=== PATIENT | female | born 1990 | race Caucasian/White ===

== ENCOUNTER 2017-12-21 00:07 | Inpatient (IN) | payer BC ==
[2017-12-21] MEDS ORDERED: Lidocaine 1% 50 ML MDV INJECT PRN (00:13)
[2017-12-21] MEDS ORDERED: Nalbuphine 10 MG/1 ML Vial IVPUSH PRN (00:13)
[2017-12-21] MEDS ORDERED: Sodium Chloride 0.9% 10 ML Syringe FLUSH PRN (00:13)
[2017-12-21] MEDS ORDERED: Methylergonovine 0.2 MG/1 ML Amp IM PRN (00:13)
[2017-12-21] MEDS ORDERED: Misoprostol 200 MCG Tab PO PRN ×3 (00:13→07:43)
[2017-12-21] MEDS ORDERED: Sodium Chloride 0.9% 2.5 ML Syringe FLUSH PRN (00:13)
[2017-12-21] MEDS ORDERED: Water For Irrigation,Sterile 1,000 ML Container IRR PRN (00:13)
[2017-12-21] MEDS ORDERED: Carboprost Tromethamine 250 MCG/1 ML Amp IM PRN (00:13)
[2017-12-21] MEDS ORDERED: Tranexamic Acid 1,000 MG in Sodium Chloride 0.9% 100 ML IV PRN (00:13)
[2017-12-21] MEDS ORDERED: Oxytocin/0.9 % Sodium Chloride 30 UNIT/500 ML BAG IV SCH ×2 (00:15→00:30)
[2017-12-21] MEDS ORDERED: Misoprostol 25 MCG (1/4 of 100 MCG) Tab VAG PRN (00:17)
[2017-12-21] MEDS ORDERED: Terbutaline 1 MG/ML SDV SUBCUT PRN (00:17)
[2017-12-21] MEDS ORDERED: Ampicillin 2 GM in Sodium Chloride 0.9% 100 ML IV ONE (04:04)
[2017-12-21] MEDS: Lactated Ringers 1,000 ML IV SCH ×2 (04:40→07:15)
--- NOTE | 2017-12-21 06:44 | PCM.LDHP ---
L&D History of Present Illness - General Date of Service: 12/21/17 Admit Problem/Dx: Patient Status Order with Admit Dx/Problem 12/21/17 00:13 Patient Status [ADT] Routine Admission Diagnosis/Problem Admission Diagnosis/Problem 12/21/17 06:40 27yo EDC 12/26/2017 39 2/7wks, O+, R-equivocal, GBS pos. IOL term Source of Information: Patient History Limitations: Reports: No Limitations - History of Present Illness Improves with: Reports: None Worsens with: Reports: None Associated Symptoms: Reports: N - Related Data Allergies/Adverse Reactions: Allergies Allergy/AdvReac Type Severity Reaction Status Date / Time No Known Allergies Allergy Verified 12/06/17 16:53 Home Medications: Home Meds Vit W-Ca,Fe,FA(<1 mg) [ Vitamins] 1 tab PO DAILY 10/17/17 [ History] Past Medical History - Past Health History Medical/Surgical History: Denies Medical/Surgical History [employer]SEM[employer]ER History: Reports: Social & Family History - Family History Family Medical History: Noncontributory - Tobacco Use Smoking Status *Q: Never Smoker Second Hand Smoke Exposure: No - Caffeine Use Caffeine Use: Reports: None - Recreational Drug Use Recreational Drug Use: No H&P Review of Systems - Review of Systems: Review Of Systems: See Below General: Reports: No Symptoms HEENT: Reports: No Symptoms Pulmonary: Reports: No Symptoms Cardiovascular: Reports: No Symptoms Gastrointestinal: Reports: No Symptoms Genitourinary: Reports: No Symptoms Musculoskeletal: Reports: No Symptoms Skin: Reports: No Symptoms Psychiatric: Reports: No Symptoms Neurological: Reports: No Symptoms Hematologic/Lymphatic: Reports: No Symptoms Immunologic: Reports: No Symptoms L&D Exam - Exam Exam: See Below - Vital Signs Weight: 85.729 kg - OB Specific Fundal Height In cm: 39 Contraction Intensity: Strong Movement: Active Heart Tones: Present Heart Tones per Min: 130 Heart Rate (FHR) Variability: Moderate (6-25 bmp) Presentation: Vertex - Bunn Score Bunn Score Cervix Position: Midposition Bunn Score Consistency: Soft Bunn Score Effacement: >80% Bunn Score Dilation: > 5 cm Bunn Score 's Station: -2 Bunn Score Total: 10 - Exam General: Alert, Oriented, Cooperative HEENT: Hearing Intact Lungs: Clear to Auscultation, Normal Respiratory Effort Cardiovascular: Regular Rate, Regular Rhythm, Normal S1, Normal S2 GI/Abdominal Exam: Soft, Non-Tender Rectal Exam: Deferred Genitourinary: Normal external exam, Normal bimanual exam, Cervical dilitation Back Exam: Normal Inspection, Full Range of Motion Extremities: Normal Inspection, Normal Range of Motion, Non-Tender, No Pedal Edema, Normal Capillary Refill Skin: Warm, Dry, Intact Neurological: Cranial Nerves Intact, Reflexes Equal Bilateral, Strength Equal Bilateral, Normal Speech, Normal Tone, Sensation Intact Psychiatric: Alert, Normal Affect, Normal Mood - Patient Data Lab Results Last 24 hrs: Laboratory Results - last 24 hr 12/21/17 12/21/17 Range/Units 00:10 00:35 WBC 8.23 (4.0-11.0) K/uL RBC 4.08 L (4.30-5.90) M/uL Hgb 11.2 L (12.0-16.0) g/dL Hct 33.1 L (36.0-46.0) % MCV 81.1 (80.0-98.0) fL MCH 27.5 (27.0-32.0) pg MCHC 33.8 (31.0-37.0) g/dL RDW Std Deviation 41.4 (28.0-62.0) fl RDW Coeff of Erik 14 (11.0-15.0) % Plt Count 154 (150-400) K/uL MPV 10.70 (7.40-12.00) fL Nucleated RBC % 0.0 /100WBC Nucleated RBCs # 0 K/uL Blood Type O POSITIVE Antibody Screen NEGATIVE Result Diagrams: 12/21/17 00:10 - Problem List (1) Supervision of normal IUP (intrauterine ) in multigravida SNOMED Code(s): 170937481, 260779163, 266913990 ICD Code: Z34.80 - ENCOUNTER FOR SUPRVSN OF NORMAL , UNSP TRIMESTER Status: Acute Current Visit: Yes Qualifiers: Trimester: third trimester Qualified Code(s): Z34.83 - Encounter for supervision of other normal , third trimester Problem List Initiated/Reviewed/Updated: Yes Orders Last 24hrs: Active Orders 24 hr Category Date Time Status Patient Status [ADT] Routine ADT 12/21/17 00:13 Active Bedrest Bathroom Privileges [RC] ASDIRECTED Care 12/21/17 00:17 Active Communication Order [RC] ASDIRECTED Care 12/21/17 00:17 Active Communication Order [RC] ASDIRECTED Care 12/21/17 00:17 Active Communication Order [RC] ASDIRECTED Care 12/21/17 00:17 Active Heart Tones [RC] CONTINUOUS Care 12/21/17 00:13 Active Non Stress Test [RC] PER UNIT ROUTINE Care 12/21/17 00:13 Active May Shower [RC] ASDIRECTED Care 12/21/17 00:13 Active Notify Provider [RC] PRN Care 12/21/17 00:13 Active Notify Provider [RC] PRN Care 12/21/17 00:17 Active Notify Provider [RC] PRN Care 12/21/17 00:17 Active Notify Provider [RC] STAT Care 12/21/17 00:17 Active Oxygen Therapy [RC] ASDIRECTED Care 12/21/17 00:17 Active Up ad Danica [RC] ASDIRECTED Care 12/21/17 00:13 Active Vaginal Exam [RC] PRN Care 12/21/17 00:13 Active Vaginal Exam [RC] PRN Care 12/21/17 00:17 Active Vital Signs [RC] PER UNIT ROUTINE Care 12/21/17 00:13 Active Vital Signs [RC] PER UNIT ROUTINE Care 12/21/17 00:17 Active Regular Diet [DIET] Diet 12/21/17 Breakfast Active Ampicillin 1 gm Med 12/21/17 09:00 Active Sodium Chloride 0.9% [Normal Saline] 50 ml IV Q4H Carboprost Tromethamine [Hemabate DS] Med 12/21/17 00:13 Active 250 mcg IM ASDIRECTED PRN Lactated Ringers [Ringers, Lactated] 1,000 ml Med 12/21/17 00:15 Active IV ASDIRECTED Lidocaine 1% [Xylocaine 1%] Med 12/21/17 00:13 Active 50 ml INJECT ONETIME PRN Methylergonovine [Methergine] Med 12/21/17 00:13 Active 0.2 mg IM ASDIRECTED PRN Nalbuphine [Nubain] Med 12/21/17 00:13 Active 10 mg IVPUSH Q1H PRN Oxytocin/0.9 % Sodium Chloride [Oxytocin 30 Unit/500 ML Med 12/21/17 00:15 Active -NS] 30 unit in 500 ml IV TITRATE Oxytocin/0.9 % Sodium Chloride [Oxytocin 30 Unit/500 ML Med 12/21/17 00:30 Active -NS] 30 unit in 500 ml IV TITRATE Sodium Chloride 0.9% [Saline Flush] Med 12/21/17 00:13 Active 10 ml FLUSH ASDIRECTED PRN Sodium Chloride 0.9% [Saline Flush] Med 12/21/17 00:13 Active 2.5 ml FLUSH ASDIRECTED PRN Terbutaline [Brethine] Med 12/21/17 00:17 Active 0.25 mg SUBCUT ASDIRECTED PRN Tranexamic Acid [Cyklokapron] 1,000 mg Med 12/21/17 00:13 Active Sodium Chloride 0.9% [Normal Saline] 100 ml IV ONETIME Water For Irrigation,Sterile [Sterile Water for Med 12/21/17 00:13 Active Irrigation] 1,000 ml IRR ASDIRECTED PRN miSOPROStol [Cytotec] Med 12/21/17 00:22 Active 25 mcg PO Q4H PRN miSOPROStol [Cytotec] Med 12/21/17 00:17 Active 25 mcg VAG Q4H PRN Scalp Electrode [WOMSER] Per Unit Routine Oth 12/21/17 00:13 Ordered Medication Administration Instruction [OM.PC] Q3H Oth 12/21/17 00:30 Ordered Peripheral IV Insertion Adult [OM.PC] Routine Oth 12/21/17 00:13 Ordered Resuscitation Status Routine Resus Stat 12/21/17 00:13 Ordered Medication Orders Carboprost Tromethamine (Hemabate Ds) 250 mcg IM ASDIRECTED PRN PRN Reason: Post Hemorrhage Lactated Ringer's (Ringers, Lactated) 1,000 mls @ 150 mls/hr IV ASDIRECTED CHAN Last Admin: 12/21/17 04:40 Dose: 150 mls/hr Oxytocin/Sodium Chloride (Oxytocin 30 Unit/500 Ml-Ns) 30 unit in 500 mls @ 999 mls/hr IV TITRATE CHAN Tranexamic Acid 1,000 mg/ (Sodium Chloride) 110 mls @ 660 mls/hr IV ONETIME PRN PRN Reason: Bleeding Oxytocin/Sodium Chloride (Oxytocin 30 Unit/500 Ml-Ns) 30 unit in 500 mls @ 2 mls/hr IV TITRATE CHAN; Protocol Ampicillin Sodium 1 gm/ Sodium (Chloride) 50 mls @ 100 mls/hr IV Q4H CHAN Lidocaine HCl (Xylocaine 1%) 50 ml INJECT ONETIME PRN PRN Reason: Laceration repair Methylergonovine Maleate (Methergine) 0.2 mg IM ASDIRECTED PRN PRN Reason: Post Hemorrhage Misoprostol (Cytotec) 25 mcg VAG Q4H PRN PRN Reason: Cervical Ripening Last Admin: 12/21/17 02:39 Dose: 25 mcg Misoprostol (Cytotec) 25 mcg PO Q4H PRN PRN Reason: Post Hemorrhage Last Admin: 12/21/17 02:39 Dose: 25 mcg Nalbuphine HCl (Nubain) 10 mg IVPUSH Q1H PRN PRN Reason: Pain (severe 7-10) Sodium Chloride (Saline Flush) 10 ml FLUSH ASDIRECTED PRN PRN Reason: Keep Vein Open Sodium Chloride (Saline Flush) 2.5 ml FLUSH ASDIRECTED PRN PRN Reason: Keep Vein Open Sterile Water (Sterile Water For Irrigation) 1,000 ml IRR ASDIRECTED PRN PRN Reason: delivery Terbutaline Sulfate (Brethine) 0.25 mg SUBCUT ASDIRECTED PRN PRN Reason: Tacysystole Assessment/Plan Comment:: IOL A: 27yo EDC 12/26/2017 39 2/7wks, O+, R-equivocal, GBS pos. IOL term P: Admit, cytotec to pitocin, Amp for GBS pos. Epidural prn, anticipate . Dr Temple updated.
[2017-12-21] MEDS ORDERED: Ropivacaine 0.2% 2 MG/ML 20 ML SDV ONE (07:07)
--- NOTE | 2017-12-21 07:23 | PCM.PREANE ---
Preanesthetic Assessment - Procedure Proposed Procedure: labor epidural - Anesthesia/Transfusion/Family Hx Anesthesia History: Prior Anesthesia Without Reaction Family History of Anesthesia Reaction: No - Review of Systems Other: Reports: None - Physical Assessment Height: 5 ft 6 in Weight: 85.729 kg ASA Class: 2 Mental Status: Alert & Oriented x3 Airway Class: Mallampati = 1 Dentition: Reports: Normal Dentition Thyro-Mental Finger Breadths: 3 Mouth Opening Finger Breadths: 3 ROM/Head Extension: Full - Lab Values: Laboratory Last Values WBC 8.23 K/uL (4.0-11.0) 12/21/17 00:10 RBC 4.08 M/uL (4.30-5.90) L 12/21/17 00:10 Hgb 11.2 g/dL (12.0-16.0) L 12/21/17 00:10 Hct 33.1 % (36.0-46.0) L 12/21/17 00:10 MCV 81.1 fL (80.0-98.0) 12/21/17 00:10 MCH 27.5 pg (27.0-32.0) 12/21/17 00:10 MCHC 33.8 g/dL (31.0-37.0) 12/21/17 00:10 RDW Std Deviation 41.4 fl (28.0-62.0) 12/21/17 00:10 RDW Coeff of Erik 14 % (11.0-15.0) 12/21/17 00:10 Plt Count 154 K/uL (150-400) 12/21/17 00:10 MPV 10.70 fL (7.40-12.00) 12/21/17 00:10 Nucleated RBC % 0.0 /100WBC 12/21/17 00:10 Nucleated RBCs # 0 K/uL 12/21/17 00:10 Blood Type O POSITIVE 12/21/17 00:35 Antibody Screen NEGATIVE 12/21/17 00:35 - Allergies Allergies/Adverse Reactions: Allergies Allergy/AdvReac Type Severity Reaction Status Date / Time No Known Allergies Allergy Verified 12/06/17 16:53 - Blood Blood Available: Yes Product(s) Available: PRBC - Acknowledgements Anesthesia Type Planned: Epidural Pt an Appropriate Candidate for the Planned Anesthesia: Yes Alternatives and Risks of Anesthesia Discussed w Pt/Guardian: Yes Pt/Guardian Understands and Agrees with Anesthesia Plan: Yes PreAnesthesia Questionnaire - Past Health History Medical/Surgical History: Denies 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: - Past Surgical History HEENT Surgical History: Reports: Oral Surgery - SUBSTANCE USE Smoking Status *Q: Never Smoker Second Hand Smoke Exposure: No Recreational Drug Use History: No - HOME MEDS Home Medications: Home Meds Vit W-Ca,Fe,FA(<1 mg) [ Vitamins] 1 tab PO DAILY 10/17/17 [ History] - CURRENT (IN HOUSE) MEDS Current Meds: Current Medications Carboprost Tromethamine (Hemabate Ds) 250 mcg IM ASDIRECTED PRN PRN Reason: Post Hemorrhage Lactated Ringer's (Ringers, Lactated) 1,000 mls @ 150 mls/hr IV ASDIRECTED CHAN Last Admin: 12/21/17 07:15 Dose: 150 mls/hr Oxytocin/Sodium Chloride (Oxytocin 30 Unit/500 Ml-Ns) 30 unit in 500 mls @ 999 mls/hr IV TITRATE CHAN Tranexamic Acid 1,000 mg/ (Sodium Chloride) 110 mls @ 660 mls/hr IV ONETIME PRN PRN Reason: Bleeding Oxytocin/Sodium Chloride (Oxytocin 30 Unit/500 Ml-Ns) 30 unit in 500 mls @ 2 mls/hr IV TITRATE CHAN; Protocol Ampicillin Sodium 1 gm/ Sodium (Chloride) 50 mls @ 100 mls/hr IV Q4H CHAN Lidocaine HCl (Xylocaine 1%) 50 ml INJECT ONETIME PRN PRN Reason: Laceration repair Methylergonovine Maleate (Methergine) 0.2 mg IM ASDIRECTED PRN PRN Reason: Post Hemorrhage Misoprostol (Cytotec) 25 mcg VAG Q4H PRN PRN Reason: Cervical Ripening Last Admin: 12/21/17 02:39 Dose: 25 mcg Misoprostol (Cytotec) 25 mcg PO Q4H PRN PRN Reason: Post Hemorrhage Last Admin: 12/21/17 02:39 Dose: 25 mcg Nalbuphine HCl (Nubain) 10 mg IVPUSH Q1H PRN PRN Reason: Pain (severe 7-10) Last Admin: 12/21/17 06:35 Dose: 10 mg Sodium Chloride (Saline Flush) 10 ml FLUSH ASDIRECTED PRN PRN Reason: Keep Vein Open Sodium Chloride (Saline Flush) 2.5 ml FLUSH ASDIRECTED PRN PRN Reason: Keep Vein Open Sterile Water (Sterile Water For Irrigation) 1,000 ml IRR ASDIRECTED PRN PRN Reason: delivery Terbutaline Sulfate (Brethine) 0.25 mg SUBCUT ASDIRECTED PRN PRN Reason: Tacysystole Discontinued Medications Ampicillin Sodium 2 gm/ Sodium (Chloride) 100 mls @ 200 mls/hr IV ONETIME ONE Stop: 12/21/17 04:33 Last Admin: 12/21/17 04:45 Dose: 200 mls/hr Fentanyl/Bupivacaine HCl (Ibwgelyb-Jyrdg-Jp 2 Mcg/Ml-0.125%) Confirm Administered Dose 100 mls @ as directed EP .STK-MED ONE Stop: 12/21/17 07:08 Misoprostol (Cytotec) 200 mcg PO ONETIME PRN PRN Reason: Post Hemorrhage Ropivacaine (Naropin 0.2%) Confirm Administered Dose 20 ml .ROUTE .STK-MED ONE Stop: 12/21/17 07:08
[2017-12-21] MEDS ORDERED: ePHEDrine 50 MG/ML SDV ONE (07:37)
[2017-12-21] MEDS ORDERED: Oxytocin/0.9 % Sodium Chloride 30 UNIT/500 ML BAG ONE (07:52)
[2017-12-21] MEDS ORDERED: Oxytocin 10 Units/1 ML SDV ONE (08:58)
[2017-12-21] MEDS ORDERED: Ampicillin 1 GM in Sodium Chloride 0.9% 50 ML IV SCH (09:00)
[2017-12-21] MEDS ORDERED: Acetaminophen 500 MG Tab PO PRN (09:19)
[2017-12-21] MEDS ORDERED: Lanolin 100% Cream 7 GM Tube TOP PRN (09:19)
[2017-12-21] MEDS ORDERED: oxyCODONE 5 MG Tab PO PRN (09:19)
[2017-12-21] MEDS ORDERED: Ibuprofen 400 MG Tab PO PRN (09:19)
[2017-12-21] MEDS ORDERED: Benzocaine/Menthol 20%-0.5% Spray 78 GM Cannister TOP PRN (09:19)
[2017-12-21] MEDS ORDERED: Witch Hazel Medicated Pads 40/Jar TOP PRN (09:19)
[2017-12-21] MEDS ORDERED: Docusate Sodium 100 MG Cap PO PRN (09:19)
[2017-12-21] MEDS ORDERED: Bisacodyl 10 MG Supp RECTAL PRN (09:19)
[2017-12-21] MEDS ORDERED: Measles, Mumps & Rubella Vaccine 0.5 ML SDV SUBCUT ONE (09:30)
[2017-12-21] MEDS ORDERED: Promethazine 25 MG/ML SDV IM PRN (09:30)
[2017-12-21] MEDS ORDERED: Oxytocin 10 Units/1 ML SDV IM ONE (10:26)
[2017-12-21] MEDS ORDERED: Promethazine 25 MG/ML SDV IM ONE (10:26)
--- NOTE | 2017-12-21 16:30 | PCM.DEL ---
L & D Note - General Info Date of Service: 12/21/17 Mother's Due Date: 12/26/17 - Delivery Note Cervical Ripening Method: Misoprostil Delivery Outcome: Livebirth Delivery Method: Spontaneous Vaginal Delivery-Single Delivery Mode: Spontaneous Presentation: Vertex Nuchal Cord: None Anesthesia Type: Epidural Amniotic Fluid Description: Clear Episiotomy Type: None Laceration: 2nd Degree Suture type: Vicryl Suture size: 3-0 Cord: 3 Vessels Estimated Blood Loss: 150 Resuscitation Needed: No Score 1 min: 9 Score 5 min: 10 Second Stage Interventions: Reports: Pushing, Pulls Own Legs Back - General Info Date of Service: 12/21/17 Admission Dx/Problem (Free Text): Patient Status Order with Admit Dx/Problem 12/21/17 00:13 Patient Status [ADT] Routine Admission Diagnosis/Problem Admission Diagnosis/Problem 12/21/17 06:40 27yo EDC 12/26/2017 39 2/7wks, O+, R-equivocal, GBS pos. IOL term Functional Status: Reports: Pain Controlled - Review of Systems General: Reports: No Symptoms HEENT: Reports: No Symptoms Pulmonary: Reports: No Symptoms Cardiovascular: Reports: No Symptoms Gastrointestinal: Reports: No Symptoms Genitourinary: Reports: No Symptoms Musculoskeletal: Reports: No Symptoms Skin: Reports: No Symptoms Neurological: Reports: No Symptoms Psychiatric: Reports: No Symptoms - Patient Data Weight - Most Recent: 85.729 kg Lab Results Last 24 Hours: Laboratory Results - last 24 hr 12/21/17 12/21/17 Range/Units 00:10 00:35 WBC 8.23 (4.0-11.0) K/uL RBC 4.08 L (4.30-5.90) M/uL Hgb 11.2 L (12.0-16.0) g/dL Hct 33.1 L (36.0-46.0) % MCV 81.1 (80.0-98.0) fL MCH 27.5 (27.0-32.0) pg MCHC 33.8 (31.0-37.0) g/dL RDW Std Deviation 41.4 (28.0-62.0) fl RDW Coeff of Erik 14 (11.0-15.0) % Plt Count 154 (150-400) K/uL MPV 10.70 (7.40-12.00) fL Nucleated RBC % 0.0 /100WBC Nucleated RBCs # 0 K/uL Blood Type O POSITIVE Antibody Screen NEGATIVE Med Orders - Current: Current Medications Acetaminophen (Tylenol Extra Strength) 500 mg PO Q4H PRN PRN Reason: Pain Acetaminophen (Tylenol Extra Strength) 1,000 mg PO Q4H PRN PRN Reason: Pain Benzocaine/Menthol (Dermoplast Pain Relief 20%-0.5% [place]) 78 gm TOP ASDIRECTED PRN PRN Reason: Perineal Comfort Measure Bisacodyl (Dulcolax) 10 mg RECTAL ONETIME PRN PRN Reason: Constipation Docusate Sodium (Colace) 100 mg PO BID PRN PRN Reason: Constipation Emollient Ointment (Lansinoh Hpa) 0 gm TOP ASDIRECTED PRN PRN Reason: Sore Nipples Ibuprofen (Motrin) 400 mg PO Q4H PRN PRN Reason: Pain Ibuprofen (Motrin) 800 mg PO Q6H PRN PRN Reason: Pain Oxycodone HCl (Oxycodone) 5 mg PO Q2H PRN PRN Reason: Pain Promethazine HCl (Phenergan) 25 mg IM Q4H PRN PRN Reason: Nausea Last Admin: 12/21/17 11:28 Dose: 25 mg Witch Bonnie (Tucks) 1 pad TOP ASDIRECTED PRN PRN Reason: comfort care Discontinued Medications Carboprost Tromethamine (Hemabate Ds) 250 mcg IM ASDIRECTED PRN PRN Reason: Post Hemorrhage Ephedrine Sulfate (Ephedrine Sulfate) Confirm Administered Dose 50 mg .ROUTE .STK-MED ONE Stop: 12/21/17 07:38 Lactated Ringer's (Ringers, Lactated) 1,000 mls @ 150 mls/hr IV ASDIRECTED CHAN Last Admin: 12/21/17 07:15 Dose: 150 mls/hr Oxytocin/Sodium Chloride (Oxytocin 30 Unit/500 Ml-Ns) 30 unit in 500 mls @ 999 mls/hr IV TITRATE CHAN Tranexamic Acid 1,000 mg/ (Sodium Chloride) 110 mls @ 660 mls/hr IV ONETIME PRN PRN Reason: Bleeding Oxytocin/Sodium Chloride (Oxytocin 30 Unit/500 Ml-Ns) 30 unit in 500 mls @ 2 mls/hr IV TITRATE CHAN; Protocol Ampicillin Sodium 2 gm/ Sodium (Chloride) 100 mls @ 200 mls/hr IV ONETIME ONE Stop: 12/21/17 04:33 Last Admin: 12/21/17 04:45 Dose: 200 mls/hr Ampicillin Sodium 1 gm/ Sodium (Chloride) 50 mls @ 100 mls/hr IV Q4H CHAN Fentanyl/Bupivacaine HCl (Mjxyziau-Xpujg-My 2 Mcg/Ml-0.125%) Confirm Administered Dose 100 mls @ as directed EP .STK-MED ONE Stop: 12/21/17 07:08 Oxytocin/Sodium Chloride (Oxytocin 30 Unit/500 Ml-Ns) Confirm Administered Dose 30 unit in 500 mls @ as directed .ROUTE .STK-MED ONE Stop: 12/21/17 07:53 Last Admin: 12/21/17 12:12 Dose: Not Given Influenza Virus Vaccine (Pharmacy To Dose - Influenza Vaccine) 1 each IM ONETIME ONE Stop: 12/21/17 11:15 Lidocaine HCl (Xylocaine 1%) 50 ml INJECT ONETIME PRN PRN Reason: Laceration repair Measles/Mumps/Rubella Vaccine Live (M-M-R Ii Vaccine) 0.5 ml SUBCUT .ONCE ONE Stop: 12/21/17 09:31 Methylergonovine Maleate (Methergine) 0.2 mg IM ASDIRECTED PRN PRN Reason: Post Hemorrhage Misoprostol (Cytotec) 200 mcg PO ONETIME PRN PRN Reason: Post Hemorrhage Misoprostol (Cytotec) 25 mcg VAG Q4H PRN PRN Reason: Cervical Ripening Last Admin: 12/21/17 02:39 Dose: 25 mcg Misoprostol (Cytotec) 25 mcg PO Q4H PRN PRN Reason: Post Hemorrhage Last Admin: 12/21/17 02:39 Dose: 25 mcg Misoprostol (Cytotec) 200 mcg PO ONETIME PRN PRN Reason: post hemorrhage Nalbuphine HCl (Nubain) 10 mg IVPUSH Q1H PRN PRN Reason: Pain (severe 7-10) Last Admin: 12/21/17 06:35 Dose: 10 mg Oxytocin (Pitocin) Confirm Administered Dose 10 unit .ROUTE .STK-MED ONE Stop: 12/21/17 08:59 Last Admin: 12/21/17 10:05 Dose: 10 unit Oxytocin (Pitocin) 10 unit IM ONETIME ONE Stop: 12/21/17 10:27 Promethazine HCl (Phenergan) 25 mg IM ONETIME ONE Stop: 12/21/17 10:27 Ropivacaine (Naropin 0.2%) Confirm Administered Dose 20 ml .ROUTE .STK-MED ONE Stop: 12/21/17 07:08 Sodium Chloride (Saline Flush) 10 ml FLUSH ASDIRECTED PRN PRN Reason: Keep Vein Open Sodium Chloride (Saline Flush) 2.5 ml FLUSH ASDIRECTED PRN PRN Reason: Keep Vein Open Sterile Water (Sterile Water For Irrigation) 1,000 ml IRR ASDIRECTED PRN PRN Reason: delivery Terbutaline Sulfate (Brethine) 0.25 mg SUBCUT ASDIRECTED PRN PRN Reason: Tacysystole - Exam General: Alert, Oriented, Cooperative, No Acute Distress Lungs: Normal Respiratory Effort GI/Abdominal Exam: Soft, Non-Tender (Female) Exam: Normal External Exam, Normal Bimanual Exam, Vaginal Bleeding Back Exam: Normal Inspection, Full Range of Motion Extremities: Normal Inspection, Normal Range of Motion, Non-Tender, No Pedal Edema, Normal Capillary Refill Skin: Warm, Dry, Intact Wound/Incisions: Healing Well Neurological: No New Focal Deficit, Normal Speech, Normal Tone, Strength Equal Bilateral Psy/Mental Status: Alert, Normal Affect, Normal Mood - Problem List & Annotations (1) Supervision of normal IUP (intrauterine ) in multigravida SNOMED Code(s): 708808731, 656140095, 506226408 Code(s): Z34.80 - ENCOUNTER FOR SUPRVSN OF NORMAL , UNSP TRIMESTER Status: Acute Current Visit: Yes Qualifiers: Trimester: third trimester Qualified Code(s): Z34.83 - Encounter for supervision of other normal , third trimester (2) (normal spontaneous vaginal delivery) SNOMED Code(s): 60768888 Code(s): O80 - ENCOUNTER FOR FULL-TERM UNCOMPLICATED DELIVERY Status: Acute Priority: High Current Visit: Yes - Problem List Review Problem List Initiated/Reviewed/Updated: Yes - My Orders Last 24 Hours: My Active Orders 12/21/17 00:13 Heart Tones [RC] CONTINUOUS Non Stress Test [RC] PER UNIT ROUTINE May Shower [RC] ASDIRECTED Notify Provider [RC] PRN Up ad Danica [RC] ASDIRECTED Vaginal Exam [RC] PRN Vital Signs [RC] PER UNIT ROUTINE 12/21/17 00:17 Bedrest Bathroom Privileges [RC] ASDIRECTED Communication Order [RC] ASDIRECTED Communication Order [RC] ASDIRECTED Communication Order [RC] ASDIRECTED Notify Provider [RC] PRN Notify Provider [RC] PRN Notify Provider [RC] STAT Oxygen Therapy [RC] ASDIRECTED Vaginal Exam [RC] PRN Vital Signs [RC] PER UNIT ROUTINE 12/21/17 09:19 Acetaminophen [Tylenol Extra Strength] 1,000 mg PO Q4H PRN Acetaminophen [Tylenol Extra Strength] 500 mg PO Q4H PRN Benzocaine/Menthol [Dermoplast Pain Relief 20%-0.5% [place]] 78 gm TOP ASDIRECTED PRN Bisacodyl [Dulcolax] 10 mg RECTAL ONETIME PRN Docusate Sodium [Colace] 100 mg PO BID PRN Ibuprofen [Motrin] 400 mg PO Q4H PRN Ibuprofen [Motrin] 800 mg PO Q6H PRN Lanolin [Lansinoh HPA] See Dose Instructions TOP ASDIRECTED PRN Witch Bonnie [Tucks] 1 pad TOP ASDIRECTED PRN oxyCODONE 5 mg PO Q2H PRN 12/21/17 09:20 May Shower [RC] ASDIRECTED Up ad Danica [RC] ASDIRECTED Vital Signs [RC] PER UNIT ROUTINE Assess Lochia [WOMSER] Per Unit Routine Assess Uterine Involution [WOMSER] Per Unit Routine Peripheral IV Discontinue [OM.PC] Routine 12/21/17 09:25 Patient Status [ADT] Routine 12/21/17 09:30 Promethazine [Phenergan] 25 mg IM Q4H PRN 12/21/17 09:31 Vaccines to be Administered [RC] PER UNIT ROUTINE 12/21/17 Breakfast Regular Diet [DIET] - Plan Plan:: IOL A: 27yo EDC 12/26/2017 39 2/7wks, O+, R-equivocal, GBS pos. IOL term P: Admit, cytotec to pitocin, Amp for GBS pos. Epidural prn, anticipate . Dr Temple updated. Delivery A: of viable male, APGARS 9/10, Wt: 8#2oz, 2nd degree lac with repair, EBL 150cc, Mother and baby bonding well in recovery P: Routine pp plan of care
[2017-12-21] MEDS: Ibuprofen 800 MG Tab PO PRN ×2 (16:52→22:57)
[2017-12-21] MEDS: Acetaminophen 500 MG Tab PO PRN (16:53)
[2017-12-22] MEDS: Ibuprofen 800 MG Tab PO PRN ×3 (05:43→22:07)
--- NOTE | 2017-12-22 08:00 | PCM.DCSUM1 ---
Discharge Summary - Hospital Course Free Text/Narrative:: Discharge home with infant. Follow up in 6 weeks or sooner if needed for post . Diagnosis: Stroke: No - Discharge Data Discharge Date: 12/22/17 Discharge Disposition: Home, Self-Care 01 Condition: Good - Discharge Diagnosis/Problem(s) (1) Supervision of normal IUP (intrauterine ) in multigravida SNOMED Code(s): 200228491, 287239716, 700311013 ICD Code: Z34.80 - ENCOUNTER FOR SUPRVSN OF NORMAL , UNSP TRIMESTER Status: Acute Current Visit: Yes Qualifiers: Trimester: third trimester Qualified Code(s): Z34.83 - Encounter for supervision of other normal , third trimester (2) (normal spontaneous vaginal delivery) SNOMED Code(s): 70759103 ICD Code: O80 - ENCOUNTER FOR FULL-TERM UNCOMPLICATED DELIVERY Status: Acute Priority: High Current Visit: Yes - Patient Instructions Diet: Usual Diet as Tolerated Activity: As Tolerated, No Strenuous Activities, Rest and Relax Today Driving: May Drive Today Showering/Bathing: May Shower Notify Provider of: Fever, Increased Pain, Swelling and Redness, Nausea and/or Vomiting Other/Special Instructions: Discharge home with . Follow up in 6 weeks or sooner if needed for post . - Discharge Plan *PRESCRIPTION DRUG MONITORING PROGRAM REVIEWED*: Not Applicable *COPY OF PRESCRIPTION DRUG MONITORING REPORT IN PATIENT NICOLÁS: Not Applicable Home Medications: Home Meds Vit W-Ca,Fe,FA(<1 mg) [ Vitamins] 1 tab PO DAILY 10/17/17 [ History] Referrals: [facility] [Outside] Andree Walker CNM [Mid-] - 02/01/18 10:45 am - General Info Date of Service: 12/22/17 Admission Dx/Problem (Free Text: Patient Status Order with Admit Dx/Problem 12/21/17 00:13 Patient Status [ADT] Routine Admission Diagnosis/Problem Admission Diagnosis/Problem 12/21/17 06:40 27yo EDC 12/26/2017 39 2/7wks, O+, R-equivocal, GBS pos. IOL term Functional Status: Reports: Pain Controlled, Tolerating Diet, Ambulating, Urinating - Review of Systems General: Reports: No Symptoms HEENT: Reports: No Symptoms Pulmonary: Reports: No Symptoms Cardiovascular: Reports: No Symptoms Gastrointestinal: Reports: No Symptoms Genitourinary: Reports: No Symptoms Musculoskeletal: Reports: No Symptoms Skin: Reports: No Symptoms Neurological: Reports: No Symptoms Psychiatric: Reports: No Symptoms - Patient Data Vitals - Most Recent: Last Vital Signs Temp 36.4 C 12/22/17 05:30 Pulse 77 12/22/17 05:30 Resp 16 12/22/17 05:30 BP 114/56 L 12/22/17 05:30 Pulse Ox 97 12/21/17 19:39 Weight - Most Recent: 85.729 kg Med Orders - Current: Current Medications Acetaminophen (Tylenol Extra Strength) 500 mg PO Q4H PRN PRN Reason: Pain Acetaminophen (Tylenol Extra Strength) 1,000 mg PO Q4H PRN PRN Reason: Pain Last Admin: 12/21/17 16:53 Dose: 1,000 mg Benzocaine/Menthol (Dermoplast Pain Relief 20%-0.5% Ruffin) 78 gm TOP ASDIRECTED PRN PRN Reason: Perineal Comfort Measure Last Admin: 12/21/17 16:51 Dose: 1 spray Bisacodyl (Dulcolax) 10 mg RECTAL ONETIME PRN PRN Reason: Constipation Docusate Sodium (Colace) 100 mg PO BID PRN PRN Reason: Constipation Emollient Ointment (Lansinoh Hpa) 0 gm TOP ASDIRECTED PRN PRN Reason: Sore Nipples Ibuprofen (Motrin) 400 mg PO Q4H PRN PRN Reason: Pain Ibuprofen (Motrin) 800 mg PO Q6H PRN PRN Reason: Pain Last Admin: 12/22/17 05:43 Dose: 800 mg Oxycodone HCl (Oxycodone) 5 mg PO Q2H PRN PRN Reason: Pain Promethazine HCl (Phenergan) 25 mg IM Q4H PRN PRN Reason: Nausea Last Admin: 12/21/17 11:28 Dose: 25 mg Witch Bonnie (Tucks) 1 pad TOP ASDIRECTED PRN PRN Reason: comfort care Discontinued Medications Carboprost Tromethamine (Hemabate Ds) 250 mcg IM ASDIRECTED PRN PRN Reason: Post Hemorrhage Ephedrine Sulfate (Ephedrine Sulfate) Confirm Administered Dose 50 mg .ROUTE .STK-MED ONE Stop: 12/21/17 07:38 Last Admin: 12/21/17 21:32 Dose: Not Given Lactated Ringer's (Ringers, Lactated) 1,000 mls @ 150 mls/hr IV ASDIRECTED CHAN Last Admin: 12/21/17 07:15 Dose: 150 mls/hr Oxytocin/Sodium Chloride (Oxytocin 30 Unit/500 Ml-Ns) 30 unit in 500 mls @ 999 mls/hr IV TITRATE CHAN Tranexamic Acid 1,000 mg/ (Sodium Chloride) 110 mls @ 660 mls/hr IV ONETIME PRN PRN Reason: Bleeding Oxytocin/Sodium Chloride (Oxytocin 30 Unit/500 Ml-Ns) 30 unit in 500 mls @ 2 mls/hr IV TITRATE CHAN; Protocol Ampicillin Sodium 2 gm/ Sodium (Chloride) 100 mls @ 200 mls/hr IV ONETIME ONE Stop: 12/21/17 04:33 Last Admin: 12/21/17 04:45 Dose: 200 mls/hr Ampicillin Sodium 1 gm/ Sodium (Chloride) 50 mls @ 100 mls/hr IV Q4H [facility] Fentanyl/Bupivacaine HCl (Vauvyxwb-Fvggx-No 2 Mcg/Ml-0.125%) Confirm Administered Dose 100 mls @ as directed EP .STK-MED ONE Stop: 12/21/17 07:08 Last Admin: 12/21/17 21:31 Dose: Not Given Oxytocin/Sodium Chloride (Oxytocin 30 Unit/500 Ml-Ns) Confirm Administered Dose 30 unit in 500 mls @ as directed .ROUTE .STK-MED ONE Stop: 12/21/17 07:53 Last Admin: 12/21/17 12:12 Dose: Not Given Influenza Virus Vaccine (Pharmacy To Dose - Influenza Vaccine) 1 each IM ONETIME ONE Stop: 12/21/17 11:15 Lidocaine HCl (Xylocaine 1%) 50 ml INJECT ONETIME PRN PRN Reason: Laceration repair Measles/Mumps/Rubella Vaccine Live (M-M-R Ii Vaccine) 0.5 ml SUBCUT .ONCE ONE Stop: 12/21/17 09:31 Methylergonovine Maleate (Methergine) 0.2 mg IM ASDIRECTED PRN PRN Reason: Post Hemorrhage Misoprostol (Cytotec) 200 mcg PO ONETIME PRN PRN Reason: Post Hemorrhage Misoprostol (Cytotec) 25 mcg VAG Q4H PRN PRN Reason: Cervical Ripening Last Admin: 12/21/17 02:39 Dose: 25 mcg Misoprostol (Cytotec) 25 mcg PO Q4H PRN PRN Reason: Post Hemorrhage Last Admin: 12/21/17 02:39 Dose: 25 mcg Misoprostol (Cytotec) 200 mcg PO ONETIME PRN PRN Reason: post hemorrhage Nalbuphine HCl (Nubain) 10 mg IVPUSH Q1H PRN PRN Reason: Pain (severe 7-10) Last Admin: 12/21/17 06:35 Dose: 10 mg Oxytocin (Pitocin) Confirm Administered Dose 10 unit .ROUTE .STK-MED ONE Stop: 12/21/17 08:59 Last Admin: 12/21/17 10:05 Dose: 10 unit Oxytocin (Pitocin) 10 unit IM ONETIME ONE Stop: 12/21/17 10:27 Promethazine HCl (Phenergan) 25 mg IM ONETIME ONE Stop: 12/21/17 10:27 Ropivacaine (Naropin 0.2%) Confirm Administered Dose 20 ml .ROUTE .STK-MED ONE Stop: 12/21/17 07:08 Last Admin: 12/21/17 21:32 Dose: Not Given Sodium Chloride (Saline Flush) 10 ml FLUSH ASDIRECTED PRN PRN Reason: Keep Vein Open Sodium Chloride (Saline Flush) 2.5 ml FLUSH ASDIRECTED PRN PRN Reason: Keep Vein Open Sterile Water (Sterile Water For Irrigation) 1,000 ml IRR ASDIRECTED PRN PRN Reason: delivery Terbutaline Sulfate (Brethine) 0.25 mg SUBCUT ASDIRECTED PRN PRN Reason: Tacysystole - Exam General: Reports: Alert, Oriented, Cooperative, No Acute Distress Lungs: Reports: Normal Respiratory Effort GI/Abdominal Exam: Soft, Non-Tender (Female) Exam: Vaginal Bleeding Rectal (Female) Exam: Deferred Back Exam: Reports: Normal Inspection, Full Range of Motion Extremities: Normal Inspection, Normal Range of Motion, Non-Tender, No Pedal Edema, Normal Capillary Refill Skin: Reports: Warm, Dry, Intact Wound/Incisions: Reports: Healing Well Neurological: Reports: No New Focal Deficit, Normal Gait, Normal Speech, Normal Tone, Strength Equal Bilateral Psy/Mental Status: Reports: Alert, Normal Affect, Normal Mood
[2017-12-22] MEDS: Acetaminophen 500 MG Tab PO PRN (22:06)
== END 2017-12-23 12:25 | disposition home or self-care (01) | DRG 560 ==
LOC: MW.OBCHECK 00:07 → MW.OB 00:10 → MW.OBCHECK 00:13 → OBSVTOIN 08:51
PROVIDERS: ADMIT Obstetrics & Gynecology; ATTEND Obstetrics & Gynecology
PROC: 10E0XZZ Delivery of Products of Conception, External Approach (ICD-10-PCS; principal; 2017-12-21)
PROC: 3E0P7VZ Introduction of Hormone into Female Reproductive, Via Natural or Artificial Opening (ICD-10-PCS; 2017-12-21)
PROC: 0KQM0ZZ Repair Perineum Muscle, Open Approach (ICD-10-PCS; 2017-12-21)
DX: O70.1 Second degree perineal laceration during delivery (principal); Z3A.39 39 weeks gestation of pregnancy; Z37.0 Single live birth
CPT/HCPCS: 36415; 59025; 59409; 85027; 86850; 86900; 86901; 90471; A9270-GY; G0008; J0290; J2300; J2550; J2590; J7030; J7120

== ENCOUNTER 2018-07-02 12:14 | Emergency (ER) | payer BC, OTHER ==
--- NOTE | 2018-07-02 12:51 | EDM.PDOC ---
ED HPI GENERAL MEDICAL PROBLEM - General Chief Complaint: Respiratory Problem Stated Complaint: UNK Time Seen by Provider: 07/02/18 12:51 Source of Information: Reports: Patient - History of Present Illness INITIAL COMMENTS - FREE TEXT/NARRATIVE: HISTORY AND PHYSICAL: History of present illness: [Patient has cough for 2 weeks keeping her awake at night nonproductive cough no fever nausea vomiting chills sweats, she complains of right lower rib pain worse on deep inspiration ] Review of systems: As per history of present illness and below otherwise all systems reviewed and negative. Past medical history: As per history of present illness and as reviewed below otherwise noncontributory. Surgical history: As per history of present illness and as reviewed below otherwise noncontributory. Social history: No reported history of drug or alcohol abuse. Family history: As per history of present illness and as reviewed below otherwise noncontributory. Physical exam: HEENT: Atraumatic, normocephalic, pupils reactive, negative for conjunctival pallor or scleral icterus, mucous membranes moist, throat clear, neck supple, nontender, trachea midline. Lungs: Clear to auscultation, breath sounds equal bilaterally, chest tender on the right lower rib margins in the axilla nontender on the left. Heart: S1S2, regular, negative for clicks, rubs, or JVD. Abdomen: Soft, nondistended, nontender. Negative for masses or hepatosplenomegaly. Negative for costovertebral tenderness. Pelvis: Stable nontender. Genitourinary: Deferred. Rectal: Deferred. Extremities: Atraumatic, negative for cords or calf pain. Neurovascular unremarkable. Neuro: Awake, alert, oriented. Cranial nerves II through XII unremarkable. Cerebellum unremarkable. Motor and sensory unremarkable throughout. Exam nonfocal. Diagnostics: [Chest 1 view UA, hCG ] Therapeutics: [Z pack Phenergan with codeine] Impression: [Bronchitis ] Chest wall pain Definitive disposition and diagnosis as appropriate pending reevaluation and review of above. 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: - Past Surgical History HEENT Surgical History: Reports: Oral Surgery Social & Family History - Family History Family Medical History: Noncontributory - Caffeine Use Caffeine Use: Reports: None ED ROS GENERAL - Review of Systems Review Of Systems: See Below ED EXAM, GENERAL - Physical Exam Exam: See Below Course - Vital Signs Last Recorded V/S: Last Vital Signs Temp 97.3 F 07/02/18 12:51 Pulse 81 07/02/18 12:51 Resp 20 07/02/18 12:51 BP 107/50 L 07/02/18 12:51 Pulse Ox 100 07/02/18 12:51 - Orders/Labs/Meds Orders: Active Orders 24 hr Category Date Time Status RT Aerosol Therapy [RC] ASDIRECTED Care 07/02/18 12:59 Active Chest 1V Frontal [CR] Stat Exams 07/02/18 12:58 Taken Labs: Laboratory Tests 07/02/18 07/02/18 Range/Units 13:28 13:28 Urine Color YELLOW Urine Appearance CLEAR Urine pH 6.0 (5.0-8.0) Ur Specific Warden <= 1.005 (1.001-1.035) Urine Protein NEGATIVE (NEGATIVE) mg/dL Urine Glucose (UA) NEGATIVE (NEGATIVE) mg/dL Urine Ketones NEGATIVE (NEGATIVE) mg/dL Urine Occult Blood NEGATIVE (NEGATIVE) Urine Nitrite NEGATIVE (NEGATIVE) Urine Bilirubin NEGATIVE (NEGATIVE) Urine Urobilinogen 0.2 (<2.0) EU/dL Ur Leukocyte Esterase NEGATIVE (NEGATIVE) Urine HCG, Qual NEGATIVE (NEGATIVE) Meds: Medications Discontinued Medications Generic Name Dose Route Start Last Admin Trade Name Freq PRN Reason Stop Dose Admin Albuterol/Ipratropium 3 ml 07/02/18 12:58 07/02/18 13:08 Duoneb 3.0-0.5 Mg/3 Ml NEB 07/02/18 12:59 3 ml ONETIME ONE Administration Departure - Departure Time of Disposition: 14:21 Disposition: Home, Self-Care 01 Condition: Good Clinical Impression: Bronchitis, Chest wall pain - Discharge Information Referrals: PCP,Unknown [Primary Care Provider] - Forms: ED Department Discharge Additional Instructions: The following information is given to patients seen in the emergency department who are being discharged to home. This information is to outline your options for follow-up care. We provide all patients seen in our emergency department with a follow-up referral. The need for follow-up, as well as the timing and circumstances, are variable depending upon the specifics of your emergency department visit. If you don't have a primary care physician on staff, we will provide you with a referral. We always advise you to contact your personal physician following an emergency department visit to inform them of the circumstance of the visit and for follow-up with them and/or the need for any referrals to a consulting specialist. The emergency department will also refer you to a specialist when appropriate. This referral assures that you have the opportunity for follow-up care with a specialist. All of these measure are taken in an effort to provide you with optimal care, which includes your follow-up. Under all circumstances we always encourage you to contact your private physician who remains a resource for coordinating your care. When calling for follow-up care, please make the office aware that this follow-up is from your recent emergency room visit. If for any reason you are refused follow-up, please contact the [facility] emergency department at and asked to speak to the emergency department charge nurse. - My Orders Last 24 Hours: My Active Orders 07/02/18 12:58 Chest 1V Frontal [CR] Stat 07/02/18 12:59 RT Aerosol Therapy [RC] ASDIRECTED - Assessment/Plan Last 24 Hours: My Active Orders 07/02/18 12:58 Chest 1V Frontal [CR] Stat 07/02/18 12:59 RT Aerosol Therapy [RC] ASDIRECTED
[2018-07-02] MEDS ORDERED: Albuterol/Ipratropium 3.0-0.5 MG/3 ML Neb Soln NEB ONE (12:58)
--- NOTE | 2018-07-02 15:01 | CR ---
INDICATION: Chest pain and shortness of breath TECHNIQUE: Chest 1 view COMPARISON: None FINDINGS: Cardiovascular and mediastinum: Heart size and vasculature are normal in caliber and appearance. Lungs and pleural spaces: Lungs are clear. No sign of infiltrate or mass. No sign of pleural effusion. No pneumothorax. Bones and soft tissues: No significant findings. IMPRESSION: No acute or significant findings. Dictated by Vivek Jung MD @ Jul 02 2018 2:59PM Signed by Dr. Vivek Jung @ Jul 02 2018 3:00PM
== END 2018-07-02 14:52 | disposition home or self-care (01) ==
LOC: MW.ED 12:14
DX: J40 Bronchitis, not specified as acute or chronic (principal); R07.89 Other chest pain; Z79.899 Other long term (current) drug therapy
CPT/HCPCS: 71045; 71045-26; 81003; 81025; 94640; 99284-25; J7620-GY